=== PATIENT | female | born 1965 | race Caucasian/White ===

== ENCOUNTER 2018-05-11 08:16 | Emergency (ER) | payer BC ==
[~2018-05-11] VITALS: Ht 167.6 cm; Wt 100.0 kg
[2018-05-11 08:19] VITALS: Ht 167.6 cm; Wt 100.0 kg
[2018-05-11] MEDS ORDERED: KETOROLAC 30 MG INJ IM STA (09:09)
[2018-05-11] MEDS ORDERED: IBUP-1542 PO (11:09)
[2018-05-11] MEDS ORDERED: ACET-141 PO (11:09)
--- NOTE | 2018-05-11 11:16 | ERD ---
ER Documentation Chief Complaint Chief Complaint left 5th toe swelling/pain HPI 53-year-old female presents for left fifth toe swelling and pain times 1 day. She does not know how she got the pain. States that the pain is 10 out of 10, described as a tightness sensation. She denies fevers or chills. She does sta te that she started running recently but does not think that that is the cause of her toe pain. Denies trauma. No treatments tried at home. Denies significant past medical history. ROS All systems reviewed and are negative except as per history of present illness. Medications Home Meds Active Scripts Acetaminophen* (Acetaminophen*) 500 MG Extra Strength Tablet, 500 MG PO Q4H PRN for PAIN AND OR ELEVATED TEMP, #30 TAB Prov:LUCIANA RODRIGUEZ DO 05/11/18 Ibuprofen* (Motrin*) 600 Mg Tab, 600 MG PO Q6H PRN for PAIN, #30 TAB Prov:LUCIANA RODRIGUEZ DO 05/11/18 PMhx/Soc Medical and Surgical Hx: pt denies Medical Hx, pt denies Surgical Hx Hx Alcohol Use: No Hx Substance Use: No Hx Tobacco Use: No Smoking Status: Never smoker Physical Exam Vitals Vital Signs Date Temp Pulse Resp B/P (MAP) Pulse Ox O2 O2 Flow FiO2 Time Delivery Rate 05/11/18 97.5 109 19 172/94 98 08:19 (120) Physical Exam Const: No acute distress Resp: Clear to auscultation bilaterally Cardio: Regular rate and rhythm, no murmurs, cap refills less than 2 seconds in all toes of the left foot Skin: No petechiae or rashes Back: No midline or flank tenderness Ext: Left fifth toe with swelling and erythema noted, there is no increased warmth. Patient is able to move the toe with some pain. Neur: Awake and alert, bilateral lower extremity sensation intact, sensation intact over the left fifth toe Psych: Normal Mood and Affect Results 24 hrs Laboratory Tests Test 05/11/18 09:49 POC Beta HCG, Qualitative NEGATIVE Current Medications Medications Dose Sig/Sandhya Start Time Status Last (Trade) Ordered Route PRN Stop Time Admin Dose Reason Admin Ketorolac 30 mg ONCE STAT 05/11/18 DC Tromethamine IM 09:09 (Toradol) 05/11/18 09:11 Procedures/MDM Splint Note Type: Juancarlos tape Location: Left fifth toe Indication: Possible fracture Splint Assessment: Neurovascularly intact post splint placement with good fit. Medical Decision Making: Differential diagnosis includes but not limited to fracture, dislocation, strain ligamentous sprain Patient appeared well on physical exam. Examination of the left fifth toe shows some erythema and swelling, no obvious deformity noted Left foot x-ray was unremarkable, no fracture noted Patient was offered pain medication in the ER however she states that she is afraid of drowsiness because she is driving so no medication was given the left fifth toe was juancarlos taped and patient was provided with crutches in the ER. Patient advised to return to the ER in a week for repeat x-ray if she continues to have pain. Prescription(s): Patient given prescription for Motrin, Tylenol. Patient advised to follow up with PCP in 1-2 days. Patient advised to return to ED for new or worsening symptoms. Patient stable on discharge from the ED. Disclaimer: Inadvertent spelling and grammatical errors are likely due to EHR/dictation software use and do not reflect on the overall quality of patient care. Also, please note that the electronic time recorded on this note does not necessarily reflect the actual time of the patient encounter. Departure Diagnosis: Primary Impression: Injury of toe Encounter type: initial encounter Laterality: left Qualified Codes: S99.922A - Unspecified injury of left foot, initial encounter Condition: Fair Patient Instructions: Finger and Toe Fractures (Broken Finger or Toe), Sprain Toe Referrals: [facility] YOU HAVE RECEIVED A MEDICAL SCREENING EXAM AND THE RESULTS INDICATE THAT YOU DO NOT HAVE A CONDITION THAT REQUIRES URGENT TREATMENT IN THE EMERGENCY DEPARTMENT. FURTHER EVALUATION AND TREATMENT OF YOUR CONDITION CAN WAIT UNTIL YOU ARE SEEN IN YOUR DOCTORS OFFICE WITHIN THE NEXT 1-2 DAYS. IT IS YOUR RESPONSIBILITY TO MAKE AN APPOINTMENT FOR FOL-UP CARE. IF YOU HAVE A PRIMARY DOCTOR --you should call your primary doctor and schedule an appointment IF YOU DO NOT HAVE A PRIMARY DOCTOR YOU CAN CALL OUR PHYSICIAN REFERRAL HOTLINE AT IF YOU CAN NOT AFFORD TO SEE A PHYSICIAN YOU CAN CHOSE FROM THE FOLLOWING [facility] [address] [facility] [address] [facility] [address] [facility] [address] [facility]. [facility] [address] [facility]. [facility]. [address] Additional Instructions: Call your primary care doctor TOMORROW for an appointment during the next 1-2 days.See the doctor sooner or return here if your condition worsens before your appointment time. Nonweight bearing return to ER in one week for repeat xray elevated to reduce swelling ice as needed for pain pain medication as needed LUCIANA RODRIGUEZ DO May 11, 2018 11:15
[2018-05-11 11:30] VITALS: BP 142/80; PULSE 90; RESP 18
== END 2018-05-11 11:33 | disposition home or self-care (01) ==
LOC: FTE 08:16
DX: S99.922A Unspecified injury of left foot, initial encounter (principal); X58.XXXA Exposure to other specified factors, initial encounter; Y92.9 Unspecified place or not applicable
CPT/HCPCS: 73630; 81025; 99283; J1885